=== PATIENT | female | born 1980 | race Caucasian/White ===

== ENCOUNTER 2024-01-09 16:28 | Emergency (ER) | payer OTHER, SELFPAY ==
[2024-01-09 16:35] VITALS: BP 111/71; PULSE 86; RESP 18; TEMP 37.1; O2SAT 99
--- NOTE | 2024-01-09 17:24 | PC.NURSE ---
1640 pt informs staff she is 6 weeks and was instructed by [facility] urgent care to come here for ultrasound and labs related to /dizziness/left lower abdominal pain. informed TELEPHONE DIRECTORY DISTRIBUTOR DRIVER would see and evaluate pt, however ultrasounds and labs are not done at this facility. pt then states does not want to remain here, will go to er as need. observed steady on feet accompanied by .
== END 2024-01-09 16:40 | disposition left against medical advice (07) ==
PROVIDERS: Emergency Provider Nurse Practitioner Family
DX: Z53.21 Procedure and treatment not carried out due to patient leaving prior to being seen by health care provider (principal)
CPT/HCPCS: 99199